=== PATIENT | male | born 2000 | race Two or more races ===

== ENCOUNTER 2024-09-22 04:29 | Emergency (ER) | payer OTHER ==
[~2024-09-22] VITALS: Ht 172.7 cm; Wt 80.7 kg
[2024-09-22] MEDS ORDERED: DEXAMETHASONE SODIUM PHOSPHATE 4 MG/ML VIAL IM STA (05:41)
[2024-09-22] MEDS ORDERED: CLINDAMYCIN PHOSPHATE 150 MG/ML (600mg) IM STA (05:41)
[2024-09-22] MEDS ORDERED: OxyCODONE HCL/APAP UD (PERCOCET) PO STA (05:42)
== END 2024-09-22 05:58 | disposition home or self-care (01) ==
LOC: ER 04:31
DX: S02.5XXA Fracture of tooth (traumatic), initial encounter for closed fracture (principal); X58.XXXA Exposure to other specified factors, initial encounter; Y93.89 Activity, other specified; Y92.89 Other specified places as the place of occurrence of the external cause; Y99.8 Other external cause status; K08.89 Other specified disorders of teeth and supporting structures; K05.10 Chronic gingivitis, plaque induced; Z88.2 Allergy status to sulfonamides
CPT/HCPCS: 96372; 99282; J1100; J3490